=== PATIENT | female | born 1960 | race Caucasian/White ===

== ENCOUNTER 2017-08-12 05:55 | Inpatient (IN) ==
[2017-08-12] MEDS ORDERED: Albuterol 2.5 MG/3 ML NEBULIZER IH ONE (06:22)
[2017-08-12] MEDS ORDERED: Lidocaine -MPF 1% 2 ML VIAL ID ONE (06:22)
[2017-08-12] MEDS ORDERED: CeFAZolin Syr 2,000MG/20 ML 2,000 MG/20 ML SYRINGE IVPB ONE (06:22)
[2017-08-12] MEDS ORDERED: Ringers Solution, Lactated 1,000 ML IVC SCH (06:30)
[2017-08-12] MEDS ORDERED: Famotidine 20 MG/2 ML VIAL IVP ONE (07:05)
[2017-08-12] MEDS ORDERED: Gabapentin 300 MG CAPSULE PO ONE (07:07)
[2017-08-12] MEDS ORDERED: Acetaminophen IV 1,000 MG/100 ML INFUS..BTL IVPB ONE ×3 (07:07→18:00)
--- NOTE | 2017-08-12 07:11 | Anesthesia Evaluation PreOp ---
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 10/28/15 [Rx] Ergocalciferol (VITAMIN D2) [Vitamin D2] 50,000 unit PO TUSA 06/09/17 [History] LORazepam [Ativan] 0.25 - 0.5 mg PO DAILY PRN 06/09/17 [History] Tramadol HCl [Ultram] 50 mg PO BID PRN 06/09/17 [History] 3 Allergy/AdvReac Type Severity Reaction Status Date / Time Penicillins Allergy Hives Verified 08/06/17 14:04 nabumetone AdvReac Vomiting Verified 08/06/17 14:04 - Meds/Allergy Pre-op Review Medications Reviewed: Yes Allergies Reviewed: Yes Beta Blockers on Current Med List: No Anesthesia Results - Labs Laboratory Tests 06/04/17 08/06/17 08:03 14:11 Hgb 13.3 Hct 41.8 Plt Count 244 Sodium 141 Potassium 4.1 BUN 14 Creatinine 0.81 - Imaging EKG: pending Additional studies: ECHO 2016 EF60% Anesthesia Exam O2 Sat Height 1.65 m Height 1.65 m Height 1.65 m Weight 115.666 kg Weight 115.666 kg Weight 115.666 kg O2 Sat by Pulse Oximetry 95 O2 Sat by Pulse Oximetry 95 O2 Sat by Pulse Oximetry 95 Vital Signs Temp Pulse Resp BP Pulse Ox 99.0 F 94 18 112/84 95 08/12/17 06:18 08/12/17 06:18 08/12/17 06:18 08/12/17 06:18 08/12/17 06:18 Height: 5'5 Weight: 255 lbs NPO (# of Hours): MN Pain Scale: 0 - HEENT Pupil (Motor): Pupils equal, EOMI Mallampati: III Teeth: Normal Oral Opening: Less than or equal to 3 - [employer]ICE [employer]IDENT [employer]NAGEMENT LOC: Oriented [employer]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
--- NOTE | 2017-08-12 07:12 | History & Physical Report ---
Date of Encounter: 08/12/17 Time of Encounter: 07:10 24 Hour HP Update - Instructions Instructions: If the History and Physical is less than 30 days old and was completed prior to A.M. admission and or procedure and has NOT been updated on calendar day of procedure please complete this update prior to performing procedure. - Update Patient reports changes in Medical Condition: No Changes in examination, assessment, or condition: No Changes in Medication: No Preop tests/diagnostics Reviewed: Yes Surgery Remains Indicated: Yes Consent for Planned Operative Procedure(s) Verified: Yes - Pre-Operative Checklist Preoperative Checklist Indicated: Yes Prophylactic Antibiotic Ordered: Yes Home Medications Include Beta Collin: No Beta Collin Taken Today (Day of Surgery): No Beta Collin Taken Yesterday (Day Prior to Surgery): No Is VTE Prophylaxis Indicated?: Yes
[2017-08-12] MEDS ORDERED: *HR* Midazolam HCl 2 MG/2 ML VIAL ONE (07:28)
[2017-08-12] MEDS ORDERED: Ondansetron 4 MG/2 ML VIAL ONE (07:28)
[2017-08-12] MEDS ORDERED: *HR* Rocuronium Bromide 50 MG/5 ML VIAL ONE (07:28)
[2017-08-12] MEDS ORDERED: Dexamethasone 4 MG/ML VIAL ONE (07:28)
[2017-08-12] MEDS ORDERED: Lidocaine -MPF 2% 2 ML VIAL ONE (07:28)
[2017-08-12] MEDS ORDERED: *HR* FentaNYL (PF) 100 MCG/2 ML VIAL ONE (07:28)
[2017-08-12] MEDS ORDERED: *HR* Propofol 200 MG/20 ML VIAL IVP ONE (07:28)
[2017-08-12] MEDS ORDERED: *HR* Succinylcholine 200 MG/10 ML VIAL IVP ONE ×2 (07:28→09:29)
[2017-08-12] MEDS ORDERED: Neostigmine Methylsulfate 3 MG/3 ML SYRINGE ONE (07:28)
[2017-08-12] MEDS ORDERED: *HR* Belladonna Alkaloids/Opium 60 MG RECTAL SUPPOSITORY RC ONE (07:29)
[2017-08-12] MEDS ORDERED: Lidocaine -MPF 4% 5 ML AMPUL ONE (07:35)
[2017-08-12] MEDS ORDERED: Ketamine *HR* 500 MG/10 ML MDV ONE (07:38)
--- NOTE | 2017-08-12 07:47 | Urology History & Physical ---
Date of Encounter: 08/12/17 Time of Encounter: 07:46 Assessment and Plan (1) Uterine prolapse Current Visit: Yes Status: Acute proceed with hyst and ASCP as scheduled History of Present Illness Chief complaint: vaginal prolapse HPI: Ms. Pretty is a 57 year old female here for hysterectomy and ASCP. no no symptoms. Past Med Surg Social Fam HX - Past Medical History Medical history: asthma, COPD, coronary artery disease, GERD, hyperlipidemia, thyroid disease, other Psychiatric history: anxiety - Past Surgical History Surgical History: appendectomy, other - Social History Smoking Status: Former smoker Smokeless Tobacco Status: Yes (Vapor) Alcohol use: none Drug use: none - Family History Mother Adopted: No Living Status: Hx Family Cardiac Disorders: Yes Sister Adopted: No Hx Family Cancer: Yes Hx Family Endocrine Disorder: Yes Medications and Allergies Albuterol Sulfate [Albuterol Inhaler] 2 puff IH DAILYR PRN #1 inhaler 10/28/15 [ Rx] Levothyroxine [Synthroid] 150 mcg PO DAILY #30 tablet 10/28/15 [Rx] Ergocalciferol (VITAMIN D2) [Vitamin D2] 50,000 unit PO MO 06/09/17 [History] LORazepam [Ativan] 0.25 - 0.5 mg PO DAILY PRN 06/09/17 [History] Tramadol HCl [Ultram] 50 mg PO BID PRN 06/09/17 [History] Ibuprofen [Motrin] 600 mg PO BID PRN 08/12/17 [History] Omeprazole [PriLOSEC] 40 mg PO BID 08/12/17 [History] 3 Allergy/AdvReac Type Severity Reaction Status Date / Time Penicillins Allergy Hives Verified 08/12/17 07:15 nabumetone AdvReac Vomiting Verified 08/12/17 07:15 Review of Systems - Constitutional no fever(s) - Cardiovascular no chest pain Exam Initial Vital Signs Temp Pulse Resp BP Pulse Ox 99.0 F 94 18 112/84 95 08/12/17 06:18 08/12/17 06:18 08/12/17 06:18 08/12/17 06:18 08/12/17 06:18 - General physical appearance Present: well developed, no distress Urology Results - Labs All other labs normal.
[2017-08-12] MEDS ORDERED: *HR* Morphine Sulfate/PF 10 MG/10 ML AMPUL ONE (07:55)
[2017-08-12] MEDS ORDERED: Bupivacaine-MPF 0.25% 10 ML VIAL ONE (07:55)
[2017-08-12] MEDS ORDERED: Ondansetron 4 MG/2 ML VIAL IVP PRN (08:36)
[2017-08-12] MEDS ORDERED: Naloxone 0.4 MG/ML INJ IVP PRN ×2 (08:36→12:29)
[2017-08-12] MEDS ORDERED: *HR* OxyCODONE/APAP 5/325 TABLET PO PRN (08:36)
--- NOTE | 2017-08-12 08:47 | Anesthesia Procedures ---
Date of Encounter: 08/12/17 Time of Encounter: 07:10 Procedures: Anesthesia - Epidural/Spinal Patient ID/Chart reviewed: Yes Patient examined: Yes Supplemental Oxygen: None/Room Air (2) Sedation: Versed (mg): 1 (Ketamine 25 mg) Site Prep: Aseptic Technique, Sterile prep and drape, Povidone-Iodine 1% Patient position: upright Local Anesthetic: Lidocaine 1% Interspace Used: L3-L4 Blood: No CSF: Yes Paresthesia: No Spinal Needle Gauge: 25 Spinal Dose: 5mg Marcaine isobaric Duramorph 0.3mg Procedure: Patient sitting sterile P&D, midline L3-4 plus CSF Patient tolerated procedure well
--- NOTE | 2017-08-12 09:44 | OB/GYN Procedure Note ---
Hysterectomy - Diagnosis Date of procedure: 08/12/17 Hysterectomy pre-op: other (Grade 3 uterine prolapse) Post-op diagnosis: same - Procedure Hysterectomy procedure: other (Total abdominal supracervical hysterectomy bilateral salpingo-oophorectomy) Surgeon: Sheldon Nascimento Was there an clerical assistant present: Yes Chef Manager: Adri Baker Anesthesia provider: Tristen Ortiz Anesthesia Type: General Estimated blood loss (cc): 20 Complications: none Fluids: crystalloid Specimens: right ovary, uterus, left ovary, right fallopian tube, left fallopian tube Findings: Patient is a 57 year old female who presented for abdominal hysterectomy by myself with a sacral colpopexy by Dr. Jose due to uterine prolapse patient had a grade 3 uterine prolapse and it was felt the best option for her would be a sacral colpopexy because she still had a uterus it was recommended she have a total supracervical abdominal hysterectomy bilateral salpingo-oophorectomy by myself and Dr. Jose could do the sacral colpopexy abdominally. Procedure: Patient was taken operating room and general anesthesia was found to be adequate. She was placed in the dorsal lithotomy position prepped and draped in usual fashion. Timeout was obtained. A sponge stick was placed in the vagina. Attention was then turned to the abdomen. A Pfannenstiel incision was made with a scalpel and carried down to the underlying tissue to the fascia was of benefit. The fascia was nicked in the midline extended laterally with the Huff scissors. The superior and inferior edges of the fascia grasped tented up dissected off the rectus muscles. Rectus muscles were in the midline parietal peritoneum was identified tented up and entered sharply. This was extended superiorly and inferiorly with Metzenbaum scissors. An O' Sameer-O'Quispe retractor was placed into the abdomen and the bowels were packed away with moist sponges. Uterus is identified in the cornual regions were grasped with Tosha clamps and then using the LigaSure the round ligaments were transected bilaterally and anteriorly the broad ligament was opened up anteriorly and the bladder was dissected off the lower uterine segment. Ureters were identified then the infundibulopelvic ligaments were transected using the LigaSure bilaterally this was carried down to the broad ligament. Broad ligament was skeletonized uterine vessels were identified and these were then cauterized and transected with the LigaSure. Once we get the level of the uterosacral cardinal complex and good blanching to the uterus a scalpel was then used to transect the uterus off the cervical stump. The cervix was then closed using a 0 Vicryl on the quadrant was then a running locking suture across the surface incorporating the parietal peritoneum anteriorly and posteriorly. Good hemostasis was noted my portion of the procedure was terminated and the case was turned over to Dr. Jose. Please refer to his dictation for the remaining portion and closure.
[2017-08-12] MEDS ORDERED: Isovue-300 50 ML VIAL IVP ONE (10:46)
--- NOTE | 2017-08-12 11:54 | Operative Note ---
Date of procedure: 08/12/17 Pre-op diagnosis: uterine prolapse (grade 3) Post-op diagnosis: same Procedure: Abdominal sacral colpopexy and cystoscopy Anesthesia: GETA Surgeon: Moisés Jose Was there an social service assistant present: No Estimated blood loss (cc): 50 Specimen: None Condition: stable Disposition: PACU Procedure in Detail: When I entered the room the patient was in a modified low lithotomy position and draped using sterile technique. Mccarty catheter is in place. Retractor was in place with bowel packed superiorly. . Sharp dissection was used to dissect the bladder away from the anterior vagina along the vesicovaginal septum. No obvious bladder injury occurred during this step. Dissection continued over the cervix and posteriorly to separate the vagina from the rectum along the rectovaginal septum. An EEA was in the vagina to aid in dissection and maneuverability of the vagina. The retroperitoneal space was then exposed by incising the posterior peritoneum from the level of the rectovaginal septum cranially to the sacral promontory. I identified the right ureter and was able to dissect this laterally to avoid injury or involvement with the case. A [employer] polypropylene graft was obtained and trimmed to size. eight 2-0 Prolene sutures were pre-placed. 4 were located on the anterior aspect of the vagina and cervix. 4 additional sutures were placed posterior on the cervix and as posterior as the dissection would allow. The 4 anterior sutures were secured to one arm of the polypropylene graft. The 4 posterior sutures were secured to the other arm. Excess mesh material was excised and it appeared the graft was well secured to the anterior and posterior aspect of the vagina. Two additional Prolene sutures were preplaced at the sacral promontory. These sutures were threaded through the graft to secure the third arm to the sacral promontory. The graft was positioned along the retroperitoneal space cranial to the sacral promontory. It was sized to allow for a tension-free approximation The peritoneal reflection was closed over the graft using a 0 Vicryl isolating the graft in a retroperitoneal location. A cystoscopy was performed. I carefully examined the entire bladder and noted no injury from the procedure. I first cannulated the right ureteral orifice with a 5 Czech ureteral catheter. The passed without resistance up to what I felt was the level of the kidney. The same was repeated on the left side but I felt some resistance. At that point the history was reviewed and noted that she had a left nephrectomy. No further investigation of the side was required. The retractor and all packing were removed. Counts were confirmed to be correct 2. The rectus muscle was closed using a running 0 Vicryl suture. The fascia was closed with a #1 looped PDS. Felicia's with a 2-0 Vicryl and the skin with 4- 0 Monocryl and Steri-Strips.
--- NOTE | 2017-08-12 12:21 | Anesthesia Evaluation Post Op ---
Date of Encounter: 08/12/17 Time of Encounter: 12:20 - Vital Signs Vital Signs: Vital Signs/O2 Sat/Glucose, Most Current Temp Pulse Resp BP Pulse Ox 08/12/17 12:10 97.9 F 92 14 131/87 97 08/12/17 12:00 93 14 120/83 98 08/12/17 11:50 96 15 114/83 98 08/12/17 11:40 97.0 F L 110 14 133/90 99 - Lungs Lungs: Clear Ascult./Percussion - Airway Airway: Non-obstructed - Cardiovascular Regular Rate - Mental Status Mental Status: Alert & Oriented, Answers Appropriately - Pain Pain Scale: 0 - Nausea Vomiting Nausea Vomiting: Not Present - Hydration Hydration: Ice chips - Discharge PostOp Status: Transfer Patient to floor
[2017-08-12] MEDS ORDERED: *HR* Promethazine 25 MG/ML VIAL IV PRN (12:29)
[2017-08-12] MEDS ORDERED: *HR* Belladonna Alkaloids/Opium 30 MG RECTAL SUPPOSITORY RC PRN (12:29)
[2017-08-12] MEDS ORDERED: OXYCODONE Oral CONC 10 MG/0.5 ML ORAL.SYG SL PRN (12:29)
[2017-08-12] MEDS ORDERED: *HR* LORazepam 0.5 MG TABLET PO PRN (12:29)
[2017-08-12] MEDS ORDERED: levoFLOXacin 500 MG TABLET PO SCH (13:30)
[2017-08-12] MEDS: Ondansetron 4 MG/2 ML VIAL IVP PRN (17:57)
[2017-08-12] MEDS: OXYCODONE Oral CONC 10 MG/0.5 ML ORAL.SYG SL PRN (20:53)
[2017-08-12] MEDS ORDERED: Ondansetron ODT 4 MG TAB.RAPDIS SL PRN (22:45)
[2017-08-12] MEDS ORDERED: *HR* OxyCODONE/APAP 10/325 TABLET PO PRN (22:47)
[2017-08-13 04:44] LABS: Basophils % 0.3 %; Eosinophils % 0.1 %; Hematocrit 36.2 % (35.3-44.9); Immature Granulocytes % 0.4 % (0-4); Lymphocytes # 1.1 K/mcL (0.6-4.6); Lymphocytes % 9.9 %; Mean Corpuscular HGB Conc 31.5 g/dL (31.6-35.5); Mean Corpuscular Hemoglobin 28.7 pg (28.0-33.3); Mean Corpuscular Volume 91.2 fL (83.0-100.0); Monocytes # 1.1 K/mcL (0.0-1.3); Monocytes % 9.8 %; Platelet Count 184 K/mcL (140-400); Red Blood Count 3.97 M/mcL (3.82-4.97); Red Cell Distribution Width 13.2 % (11.5-14.5); Segmented Neutrophils % 79.5 %
[2017-08-13 04:45] LABS: Hemoglobin 11.4 g/dL (11.5-15.4); Neutrophils # 9.1 K/mcL (1.6-8.9)
[2017-08-13 04:59] LABS: BUN/Creatinine Ratio 15 (6-26); Blood Urea Nitrogen 10 mg/dL (6-20); Calcium 8.2 mg/dL (8.6-10.3); Carbon Dioxide 24 mEq/L (23-29); Chloride 104 mEq/L (98-107); Glucose 112 mg/dL (70-105); Osmolality,Calculated 284 (280-300); Potassium 3.9 mEq/L (3.5-5.1); Sodium 137 mEq/L (136-145); eGFR For African Americans > 60 (> 60); eGFR For Non-African Americans > 60 (> 60)
[2017-08-13] MEDS ORDERED: *HR* Promethazine 25 MG/ML VIAL IVP PRN (07:39)
--- NOTE | 2017-08-13 07:44 | Urology Progress Note ---
Date of Encounter: 08/13/17 Time of Encounter: 07:42 - Assessment and Plan (1) Uterine prolapse Current Visit: Yes Status: Acute Assessment and plan: s/p ASCP. significant nausea overnight. Abdomen is benign and her labs are unconcerning. Hopefully this will pass today. Continue Zofran and Phenergan. Up out of bed and ambulate. Remove Mccarty catheter. Advance diet very slowly. Progress Note Subjective: nausea, vomiting Narrative: minimal pain but issues with N/V overnight. zofran is helping. Objective Initial Vital Signs Temp Pulse Resp BP Pulse Ox 99.0 F 94 18 112/84 95 08/12/17 06:18 08/12/17 06:18 08/12/17 06:18 08/12/17 06:18 08/12/17 06:18 - General physical appearance Present: no distress - Abdomen Present: soft, bowel sounds - Additional Exam dressings dry - Labs 08/13/17 04:09 08/13/17 04:09 Diabetes panel 08/13/17 Range/Units 04:09 Sodium 137 (136-145) mEq/L Potassium 3.9 (3.5-5.1) mEq/L Chloride 104 (98-107) mEq/L Carbon Dioxide 24 (23-29) mEq/L BUN 10 (6-20) mg/dL Creatinine 0.68 (0.60-1.20) mg/dL Glucose 112 H (70-105) mg/dL Calcium 8.2 L (8.6-10.3) mg/dL Calcium panel 08/13/17 Range/Units 04:09 Calcium 8.2 L (8.6-10.3) mg/dL Pituitary panel 08/13/17 Range/Units 04:09 Sodium 137 (136-145) mEq/L Potassium 3.9 (3.5-5.1) mEq/L Chloride 104 (98-107) mEq/L Carbon Dioxide 24 (23-29) mEq/L BUN 10 (6-20) mg/dL Creatinine 0.68 (0.60-1.20) mg/dL Glucose 112 H (70-105) mg/dL Calcium 8.2 L (8.6-10.3) mg/dL Adrenal panel 08/13/17 Range/Units 04:09 Sodium 137 (136-145) mEq/L Potassium 3.9 (3.5-5.1) mEq/L Chloride 104 (98-107) mEq/L Carbon Dioxide 24 (23-29) mEq/L BUN 10 (6-20) mg/dL Creatinine 0.68 (0.60-1.20) mg/dL Glucose 112 H (70-105) mg/dL Calcium 8.2 L (8.6-10.3) mg/dL - VTE Documentation of Mechanical Device: Intermittent pneumatic compression device Consult Discharge Plan - Plan Referrals: Bryson Duke MD [Primary Care Provider] -
--- NOTE | 2017-08-13 09:10 | Electrocardiograph Report ---
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
[2017-08-13] MEDS: Ondansetron 4 MG/2 ML VIAL IVP PRN (09:18)
[2017-08-13] MEDS: OXYCODONE Oral CONC 10 MG/0.5 ML ORAL.SYG SL PRN (10:06)
--- NOTE | 2017-08-13 12:21 | OB/GYN Progress Note ---
Date of Encounter: 08/13/17 Time of Encounter: 12:15 - Assessment and Plan (1) Status post abdominal supracervical subtotal hysterectomy Current Visit: Yes Status: Acute She will follow-up with me in 2 weeks for postop visit. Subjective - Subjective Interval history: Patient still not feeling well states still very nauseated. Did inform patient is is not uncommon to go slowly with diet. Surgery was explained to her that it went without any complications as far as the supracervical hysterectomy and the ovaries did come out we will call her when we get the pathology report back. Patient will follow up with me in 2 weeks for a postop visit. Patient reports: appetite poor, pain poorly controlled, nauseated Objective - Vital Signs Latest vital signs: Vital Signs Temp Pulse Pulse Resp BP Pulse Ox 08/13/17 08:48 98.6 F 115 16 140/79 08/13/17 04:15 99.3 F 105 14 125/83 95 08/12/17 23:15 99.6 F 114 14 115/79 93 08/12/17 19:30 98.8 F 113 14 114/76 92 08/12/17 15:35 98 100 16 110/81 98 08/12/17 14:37 98.4 F 89 16 113/83 97 08/12/17 13:46 97.9 F 88 88 16 86/67 97 08/12/17 13:30 97.9 F 88 16 86/67 97 08/12/17 13:10 97.6 F 90 16 108/65 97 08/12/17 13:00 16 08/12/17 12:40 97.5 F L 89 89 16 107/76 97 08/12/17 12:20 97.9 F 84 15 126/91 99 Intake and Output 08/12/17 08/13/17 08/13/17 23:59 07:59 15:59 Intake Total 100 / 100 Output Total 600 / 600 250 / 250 500 / 500 Balance -500 / -500 -250 / -250 -500 / -500 Intake: IV Fluids 100 / 100 Ofirmev 1,000 mg/100 ml 1,000 100 / 100 mg In 100 ml @ 400 mls/hr IVPB 1800 ONE Rx#:[id number] Output: Emesis 200 / 200 50 / 50 Catheter 400 / 400 250 / 250 450 / 450 - I&O's I&O's: Intake & Output 08/10/17 08/11/17 08/12/17 08/13/17 23:59 23:59 23:59 23:59 Intake Total 120 / 120 Output Total 900 / 900 750 / 750 Balance -780 / -780 -750 / -750 Weight 115.666 kg - Exam Lungs: bilateral: normal Chest: Normal S1, Normal S2 Extremities: Present: normal Abdomen: Present: tenderness Incision OB: Present: dressed - Labs Labs: Abnormal lab results WBC 11.5 K/mcL (4.3-11.1) H D 08/13/17 04:09 Hgb 11.4 g/dL (11.5-15.4) L D 08/13/17 04:09 MCHC 31.5 g/dL (31.6-35.5) L 08/13/17 04:09 Neutrophils # 9.1 K/mcL (1.6-8.9) H 08/13/17 04:09 Glucose 112 mg/dL (70-105) H 08/13/17 04:09 Calcium 8.2 mg/dL (8.6-10.3) L 08/13/17 04:09 Consult Discharge Plan - Plan Referrals: Bryson Duke MD [Primary Care Provider] -
[2017-08-13] MEDS ORDERED: Acetaminophen IV 1,000 MG/100 ML INFUS..BTL IVPB PRN (14:15)
--- NOTE | 2017-08-13 14:30 | Urology Progress Note ---
Date of Encounter: 08/13/17 Time of Encounter: 14:25 - Assessment and Plan (1) Uterine prolapse Current Visit: Yes Status: Acute Assessment and plan: pt continues to have nausea. talked to pharmacy. will start scheduled reglan. stopped all oxycodone. start toradol. renal function normal despite previous nephrectomy. needs to ambulate this PM. continue zofran. seems to be a little better today. tachycardia - will need to watch closely. may be due to continued nausea. will assess in the AM. abd was soft this AM and nurses report bowel sounds. Progress Note Subjective: no new complaints Narrative: pt still having nausea. sleeping now. one episode vomiting this AM. not ambulated yet. cath removed at 10 am. nurses report no nausea. Objective Initial Vital Signs Temp Pulse Resp BP Pulse Ox 99.0 F 94 18 112/84 95 08/12/17 06:18 08/12/17 06:18 08/12/17 06:18 08/12/17 06:18 08/12/17 06:18 - General physical appearance Present: no distress - Additional Exam asleep - Labs 08/13/17 04:09 08/13/17 04:09 Diabetes panel 08/13/17 Range/Units 04:09 Sodium 137 (136-145) mEq/L Potassium 3.9 (3.5-5.1) mEq/L Chloride 104 (98-107) mEq/L Carbon Dioxide 24 (23-29) mEq/L BUN 10 (6-20) mg/dL Creatinine 0.68 (0.60-1.20) mg/dL Glucose 112 H (70-105) mg/dL Calcium 8.2 L (8.6-10.3) mg/dL Calcium panel 08/13/17 Range/Units 04:09 Calcium 8.2 L (8.6-10.3) mg/dL Pituitary panel 08/13/17 Range/Units 04:09 Sodium 137 (136-145) mEq/L Potassium 3.9 (3.5-5.1) mEq/L Chloride 104 (98-107) mEq/L Carbon Dioxide 24 (23-29) mEq/L BUN 10 (6-20) mg/dL Creatinine 0.68 (0.60-1.20) mg/dL Glucose 112 H (70-105) mg/dL Calcium 8.2 L (8.6-10.3) mg/dL Adrenal panel 08/13/17 Range/Units 04:09 Sodium 137 (136-145) mEq/L Potassium 3.9 (3.5-5.1) mEq/L Chloride 104 (98-107) mEq/L Carbon Dioxide 24 (23-29) mEq/L BUN 10 (6-20) mg/dL Creatinine 0.68 (0.60-1.20) mg/dL Glucose 112 H (70-105) mg/dL Calcium 8.2 L (8.6-10.3) mg/dL - VTE Documentation of Mechanical Device: Intermittent pneumatic compression device Consult Discharge Plan - Plan Referrals: Bryson Duke MD [Primary Care Provider] -
[2017-08-13] MEDS: Ketorolac 15 MG/ML VIAL IVP PRN ×2 (14:43→22:03)
[2017-08-13] MEDS: Pantoprazole 40 MG VIAL IVP SCH (14:44)
[2017-08-13] MEDS: 0.9 % Sodium Chloride 1,000 ML IVC SCH (17:57)
[2017-08-13] MEDS: Metoclopramide 10 MG/2 ML VIAL IVP SCH (18:12)
[2017-08-13] MEDS ORDERED: OXYCODONE Oral CONC 10 MG/0.5 ML ORAL.SYG SL PRN ×2 (23:30→23:31)
[2017-08-14] MEDS ORDERED: OXYCODONE Oral CONC 10 MG/0.5 ML ORAL.SYG SL SCH ×2
[2017-08-14] MEDS: Metoclopramide 10 MG/2 ML VIAL IVP SCH ×2 (00:24→05:40)
[2017-08-14] MEDS: 0.9 % Sodium Chloride 1,000 ML IVC SCH (04:28)
--- NOTE | 2017-08-14 07:06 | Urology Progress Note ---
Date of Encounter: 08/14/17 Time of Encounter: 07:03 - Assessment and Plan (1) Uterine prolapse Current Visit: Yes Status: Resolved Assessment and plan: doing much better. consider discharge today if she continues to improve. Progress Note Subjective: feels better Narrative: all nausea resolved. feels much better. passed small flatus. ambulating and urinating. Objective Initial Vital Signs Temp Pulse Resp BP Pulse Ox 99.0 F 94 18 112/84 95 08/12/17 06:18 08/12/17 06:18 08/12/17 06:18 08/12/17 06:18 08/12/17 06:18 - Additional Exam dressings removed. incision intact abd soft and benign - Labs 08/13/17 04:09 08/13/17 04:09 - VTE Documentation of Mechanical Device: Intermittent pneumatic compression device Consult Discharge Plan - Plan Referrals: Bryson Duke MD [Primary Care Provider] -
--- NOTE | 2017-08-14 07:10 | Discharge Summary ---
Date of Encounter: 08/14/17 Time of Encounter: 07:06 - Discharge Diagnosis (1) Uterine prolapse Priority: Primary Status: Resolved - Discharge Medications Prescriptions: OxyCODONE/APAP 5/325 [Percocet 5/325 MG] 1 each PO Q4HR PRN 7 Days #20 tablet PRN Reason: Mild To Moderate Pain Metoclopramide [Reglan] 10 mg PO Q6HR PRN #30 tablet PRN Reason: Nausea Metoclopramide [Reglan] 10 mg PO Q6HR PRN #30 tablet PRN Reason: Nausea Home Medications: Albuterol Sulfate [Albuterol Inhaler] 2 puff IH DAILYR PRN #1 inhaler 10/28/15 [ Rx] Levothyroxine [Synthroid] 150 mcg PO DAILY #30 tablet 10/28/15 [Rx] Ergocalciferol (VITAMIN D2) [Vitamin D2] 50,000 unit PO MO 06/09/17 [History] LORazepam [Ativan] 0.25 - 0.5 mg PO DAILY PRN 06/09/17 [History] Tramadol HCl [Ultram] 50 mg PO BID PRN 06/09/17 [History] Ibuprofen [Motrin] 600 mg PO BID PRN 08/12/17 [History] Omeprazole [PriLOSEC] 40 mg PO BID 08/12/17 [History] Metoclopramide [Reglan] 10 mg PO Q6HR PRN #30 tablet 08/14/17 [Rx] Metoclopramide [Reglan] 10 mg PO Q6HR PRN #30 tablet 08/14/17 [Rx] OxyCODONE/APAP 5/325 [Percocet 5/325 MG] 1 each PO Q4HR PRN 7 Days #20 tablet [Rx] Allergies/Adverse Reactions: 3 Allergy/AdvReac Type Severity Reaction Status Date / Time Penicillins Allergy Hives Verified 08/12/17 07:15 nabumetone AdvReac Vomiting Verified 08/12/17 07:15 Date of admission: 08/12/17 12:28 Primary care physician: Bryson Duke MD Discharging clinician: Moisés Jose Anticipated date of discharge: 08/14/17 - Patient Status Disposition: Home, Self-Care Condition: Good Overall status at discharge: patient is progressing back to baseline - Discharge Instructions Follow Up With: Bryson Duke MD [Primary Care Provider] - Moisés Jose MD [Partnered Physician] - (2-4 weeks) Additional Instructions: Okay to shower. Avoid baths or swimming. Nothing per vagina for 4 weeks. Okay to ambulate and walk upstairs Avoid heavy lifting, heavy activity and straining Stay hydrated with water Call if fever over 101, evidence of wound infection, intractable nausea vomiting, intractable abdominal pain. Use stool softeners to avoid constipation. - Diet and Activity Activity: other Diet: advance to your usual diet - Hospital Course Hospital course: Ms. Pretty is a 57 year old female POD #2 from Abd sacrocolpopexy and hysterectomy. Has had postoperative nausea which has resolved overnight with Reglan. Doing much better. Ambulating. Urinating without difficulty. Labs on postop day #1 okay. Tolerating by mouth intake. Plan for discharge today or tomorrow - Time Spent with Patient Total time spent providing and/or coordinating discharge services: Less than 30 minutes Exam Initial Vital Signs Temp Pulse Resp BP Pulse Ox 99.0 F 94 18 112/84 95 08/12/17 06:18 08/12/17 06:18 08/12/17 06:18 08/12/17 06:18 08/12/17 06:18 - General physical appearance Present: well developed, no distress - Abdomen Abdomen: Present: soft - VTE Documentation of Mechanical Device: Intermittent pneumatic compression device
[2017-08-14] MEDS: Ondansetron 4 MG/2 ML VIAL IVP PRN ×2 (08:38→17:27)
[2017-08-14] MEDS: Pantoprazole 40 MG VIAL IVP SCH (08:43)
[2017-08-14] MEDS: Ketorolac 15 MG/ML VIAL IVP PRN (08:46)
[2017-08-14] MEDS: *HR* OxyCODONE/APAP 5/325 TABLET PO PRN ×2 (11:30→19:48)
[2017-08-15] MEDS: *HR* OxyCODONE/APAP 5/325 TABLET PO PRN ×2 (03:33→08:58)
--- NOTE | 2017-08-15 07:25 | Urology Progress Note ---
Date of Encounter: 08/15/17 Time of Encounter: 07:23 - Assessment and Plan (1) Uterine prolapse Current Visit: Yes Status: Resolved Assessment and plan: OK to activate the discharge this AM. pt ready for discharge. no concerns. Progress Note Subjective: feels better Narrative: nausea and pain controlled Objective Initial Vital Signs Temp Pulse Resp BP Pulse Ox 99.0 F 94 18 112/84 95 08/12/17 06:18 08/12/17 06:18 08/12/17 06:18 08/12/17 06:18 08/12/17 06:18 - General physical appearance Present: no distress - Additional Exam soft - Labs 08/13/17 04:09 08/13/17 04:09 - VTE Documentation of Mechanical Device: Intermittent pneumatic compression device Consult Discharge Plan - Plan Additional Instructions: Okay to shower. Avoid baths or swimming. Nothing per vagina for 4 weeks. Okay to ambulate and walk upstairs Avoid heavy lifting, heavy activity and straining Stay hydrated with water Call if fever over 101, evidence of wound infection, intractable nausea vomiting, intractable abdominal pain. Use stool softeners to avoid constipation. Referrals: Bryson Duke MD [Primary Care Provider] - Moisés Jose MD [Partnered Physician] - (2-4 weeks) Prescriptions: OxyCODONE/APAP 5/325 [Percocet 5/325 MG] 1 each PO Q4HR PRN 7 Days #20 tablet PRN Reason: Mild To Moderate Pain Metoclopramide [Reglan] 10 mg PO Q6HR PRN #30 tablet PRN Reason: Nausea Metoclopramide [Reglan] 10 mg PO Q6HR PRN #30 tablet PRN Reason: Nausea
[2017-08-15 07:54] VITALS: BP 106/70
== END 2017-08-15 09:08 | disposition home or self-care (01) | DRG 742 ==
LOC: SAMDAY 05:55 → 1NENUOBS 12:28
PROVIDERS: ADMIT Urology; ATTEND Urology